=== PATIENT | male | born 1975 | race Caucasian/White ===

== ENCOUNTER 2023-04-03 11:32 | Emergency (ER) | payer BC, OTHER, SELFPAY ==
[2023-04-03 11:35] VITALS: BP 124/76; PULSE 53; RESP 18; TEMP 36.6; O2SAT 100
--- NOTE | 2023-04-03 11:45 | DI.RAD_ITS ---
Exam(s) XR SHOULDER LT COMPLETE 2+V EXAM: XR SHOULDER LT COMPLETE 2+V CLINICAL HISTORY: trauma. TECHNIQUE: 2D digital imaging was performed. COMPARISON: No exams were available for comparison FINDINGS: Four views No evidence of fracture or dislocation of the humeral head and glenohumeral joint. There is dislocation of the AC joint. There is no fracture of the clavicle. IMPRESSION: Dislocated AC joint. No obvious fractures. DATA REPOSITORY: RADIATION DOSE DELIVERED:
[2023-04-03] MEDS: Ketorolac 15 MG/ML VIAL IVP (12:05)
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
--- NOTE | 2023-04-03 12:54 | DI.VRAD_ITS ---
PROCEDURE INFORMATION: Exam: XR Left Shoulder Exam date and time: 04/03/2023 12:28 PM Age: 47 years old Clinical indication: Other: Trauma TECHNIQUE: Imaging protocol: Radiologic exam of the left shoulder. Views: 2 or more views. COMPARISON: No relevant prior studies available. FINDINGS: Bones/joints: No acute fracture. The clavicle is elevated with respect to the acromion consistent with acromioclavicular disassociation.. Soft tissues: Normal. IMPRESSION: 1. No acute fracture. 2. The clavicle is elevated with respect to the acromion consistent with acromioclavicular disassociation.. Dictated and Authenticated by: Marielle Jaime MD. Ordering:KILLIAN Cochran MD
== END 2023-04-03 14:03 | disposition home or self-care (01) ==
PROVIDERS: Emergency Provider Nurse Practitioner Family
DX: S43.102A Unspecified dislocation of left acromioclavicular joint, initial encounter (principal); V18.4XXA Pedal cycle driver injured in noncollision transport accident in traffic accident, initial encounter; Y92.482 Bike path as the place of occurrence of the external cause; Y93.55 Activity, bike riding; Y99.9 Unspecified external cause status
CPT/HCPCS: 96374; 99283; 73030; 99282; J1885